=== PATIENT | female | born 1955 | race Caucasian/White ===

== ENCOUNTER 2021-10-04 19:30 | Inpatient (IN) ==
--- NOTE | 2021-10-04 20:36 | Emergency Department Note ---
Impression & Plan Symptoms of cerebrovascular accident, Tobacco dependence due to cigarettes, Hyperlipidemia, Hypertension ED Provider Note CHIEF COMPLAINT: Needs additional testing, possible stroke HISTORY OF PRESENT ILLNESS: This 66-year-old female patient presents to the emergency department requesting additional testing. The patient states she was seen in the emergency department earlier today for left leg numbness and weakness, gait difficulties. Patient had a CT angiogram of the head and neck that were negative for focal occlusion and stenosis. Recommendations were made for her to stay in the hospital for further stroke evaluation and given her high risk status. Patient signed out AGAINST MEDICAL ADVICE however after she spoke with her son and her physician, Dr. Mcguire, she was referred back to the emergency department. Patient states she is now willing to be admitted for further work-up feeling better informed of the plan. REVIEW OF SYSTEMS: A review of systems was performed with positives and pertinent negatives listed in the history of present illness. 10 systems were reviewed and are otherwise negative. ALLERGIES: see below MEDICATIONS: see below PMH: see below SOCIAL HISTORY: see below DDx: Infection, dehydration, metabolic abnormality, hypo/hyperglycemia, elec trolyte disturbance, anemia, hypoxia, cardiac sources, intracerebral event, toxicologic, neurologic, as well as other pathologies. PHYSICAL EXAM: Vital signs reviewed. General: Chronically ill-appearing 66-year-old female, in no significant distress. HEENT: No scleral icterus, PERRLA, neck supple. Atraumatic. Cardiovascular: Slightly tachycardic but regular, no extra sounds Pulmonary: Clear to auscultation bilaterally, normal work of breathing. Abdomen: Soft, nontender, nondistended, positive bowel sounds. Musculoskeletal: Atraumatic, no peripheral edema. Neurologic: Patient awake alert and oriented x 3, speech is clear. Slight weakness of the left lower extremity against gravity, cranial nerves II through XII are grossly intact. Equal strength of the bilateral upper extremities inclu ding office services representative strength. Skin: Warm, dry, no rash EMERGENCY DEPARTMENT COURSE/MDM: This patient was evaluated and appeared to be in no significant distress. IV access was obtained and laboratory work was drawn was placed on the youth career specialist noted to be in a sinus rhythm at 95 bpm. The patient's symptoms were the same if not improved from earlier in the day. Images of the CT angiogram of the head and neck were reviewed and revealed no significant stenosis or occlusion. There is no evidence of acute infarct on CT imaging. Laboratory work was fairly reassuring. Case was discussed with Dr. Manju Judd of the hospitalist service will evaluate the patient for admission and further management. MONITORING: An order for cardiac monitoring was placed and the patient is noted to be in a sinus rhythm at 95 beats per minute. RADIOLOGY: See below EKG: Normal sinus rhythm at 95 bpm. Possible previous septal infarct with Q waves noted, prolonged QTC at 469. No PVC, no PAC. No significant change from previous same-day. DISPOSITION: Admission Past Med/Surg History Medical History Asthma Depression with anxiety Fibromyositis Hepatitis-C LGSIL on Pap smear of cervix 2002, 2003 Migraine Pulmonary emphysema Surgical History H/O section H/O colonoscopy 10/26/2009-[facility]l H/O colposcopy with cervical biopsy wnl H/O LEEP 2003 History of tubal ligation Status post hysteroscopic ablation of endometrium Family History Aunt Diabetes Social History Smoking Status: Current every day smoker Tobacco Type: Cigarettes Hx Alcohol Use: No Preferred Language: Luxembourgish Feels Safe at Home: Yes Allergies Allergies Allergy/AdvReac Type Severity Reaction Status Date / Time meloxicam Allergy Verified 01/11/21 08:06 Home Meds Home Medications Medication Instructions Recorded Confirmed albuterol sulfate [Ventolin HFA] 2 inh INHALATION DIRECTED PRN 05/21/19 10/04/21 montelukast 10 mg tablet 10 mg PO DAILY 05/21/19 10/04/21 (Singulair) omeprazole 20 mg capsule,delayed 20 mg PO DAILY 05/21/19 10/04/21 release temazepam 30 mg capsule 1 mg PO HS PRN 05/21/19 10/04/21 fluticasone 250 mcg-salmeterol 50 1 inh INHALATION BID 10/04/21 10/04/21 mcg/dose blistr powdr for inhalation (Wixela Inhub) lisinopril 10 mg tablet 10 mg PO DAILY 06/14/22 06/14/22 vortioxetine 10 mg tablet 10 mg PO DAILY 10/04/21 10/04/21 (Trintellix) Results & Data (ED) Vital Signs Vital Signs - 24 hr 10/04/21 19:33 10/04/21 20:14 Temperature 36.5 C Temperature Source Temporal Artery Scan Oral Pulse Rate 108 H Pulse Rate [Right Finger] 95 H Pulse Rhythm [Right Finger] Regular Pulse Strength [Right Finger] Normal Respiratory Rate 16 18 Respiratory Effort / Characteristics Non-Labored Spontaneous Non-Labored Respiratory Depth Normal Normal Blood Pressure 162/82 H Blood Pressure [Right Arm] 150/90 H Blood Pressure Mean 108 Blood Pressure Mean [Right Arm] 110 Blood Pressure Position Sitting Pulse Oximetry 98 97 Oxygen Delivery Method Room Air Room Air Sepsis Recent Fever Within 48 Hours No Sepsis New/Unexplained Change in Mental Status N/A Sepsis Action Taken by Nursing No Action Required Home Medications Current Medication List: was personally reviewed by me Laboratory Data Attestation: I reviewed the patient's lab results. (Reviewed from earlier in the day.) Discharge Plan Visit Data Chief Complaint: Testing Request Stated Complaint: NEEDS TO FINISH TESTING, REF BY ED Provider: Dalia Gonzales Discharge Problem: Symptoms of cerebrovascular accident, Tobacco dependence due to cigarettes, Hyperlipidemia, Hypertension Forms Stand Alone Forms: My [facility] Prescriptions Prescriptions: No Action albuterol sulfate 2 inh inhalation DIRECTED PRN (Reason: Shortness Of Breath) RF: 0 temazepam 30 mg capsule 1 mg PO HS PRN (Reason: prn) RF: 0 omeprazole 20 mg capsule,delayed release(DR/EC) 20 mg PO DAILY RF: 0 montelukast [Singulair] 10 mg tablet 10 mg PO DAILY RF: 0 fluticasone propion-salmeterol [Wixela Inhub] 250-50 mcg/dose Blister With Device 1 inh INHALATION BID RF: 0 lisinopril 10 mg Tablet 10 mg PO DAILY RF: 0 Trintellix 10 mg tablet 10 mg PO DAILY RF: 0 Referrals Referrals: Simón Mcguire DO [Primary Care Provider] - Discharge Problem: Hyperlipidemia Qualifiers: Hyperlipidemia type: unspecified Qualified Code(s): E78.5 - Hyperlipidemia, unspecified Hypertension Qualifiers: Hypertension type: primary hypertension Qualified Code(s): I10 - Essential (primary) hypertension
--- NOTE | 2021-10-04 22:41 | History and Physical Report ---
DATE OF ADMISSION: 10/04/2021. CHIEF COMPLAINT: Left leg weakness. HISTORY OF PRESENT ILLNESS: A 66-year-old female with past medical history significant for hypercholesterolemia, COPD, obstructive sleep apnea on CPAP, hypertension, vitamin D deficiency, GERD, bilateral carpal tunnel syndrome, fibromyalgia, osteoporosis, vascular dementia, hearing loss, chronic bilateral thoracic back pain, migraine, ongoing tobacco use, anxiety, depression, hepatitis C virus, cured after antiviral therapy, comes because of left leg weakness. The patient says since last night she had left leg weakness and she went to PCP's office today and was advised to come to the ER. She came to the ER and CT of the head and CTA of the head and neck were unremarkable and patient was advised to get admitted in the hospital for MRI scan, but she declined and signed out AMA and went home. Again after talking to her family doctor, she came back for further evaluation. Currently, resting comfortably, hemodynamically stable. Except for left leg weakness she denies any other complaints. She has cough from her COPD and sinuses. Denies any fever or chills. No nausea, no vomiting, no chest pain, no shortness of breath, no abdominal pain, normal bowel and bladder movements. No swelling in the legs. No headache, no dizziness, no blurred visions, no earache, no runny nose, no sore throat. Appetite is okay. Hemodynamically stable. ALLERGIES: TO MELOXICAM. PAST MEDICAL HISTORY: As mentioned above. PAST SURGICAL HISTORY: Anesthesia for ankle arthroscopy, , colonoscopy, ligation of oviducts, removal of fibroid uterus tumor, tonsillectomy. MEDICATIONS: The patient is on acyclovir 400 mg p.o. b.i.d., albuterol 2 puffs inhalation q. 4 hours p.r.n., azelastine 2 sprays intranasally b.i.d., calcium 500 mg p.o. daily, vitamin D 25 mcg p.o. daily, fluticasone/salmeterol 1 inhalation b.i.d., lisinopril 10 mg p.o. daily, Montelukast 10 mg p.o. daily, multivitamin one tablet p.o. daily, omeprazole 20 mg p.o. daily, potassium 25 mg p.o. daily, sumatriptan p.r.n., temazepam 30 mg p.o. at bedtime p.r.n., [id number] mg p.o. daily. FAMILY HISTORY: Significant for aunt has diabetes. Father has AR. Son has depression. SOCIAL HISTORY: Smokes 1 pack a day for many years. No alcohol use. No drug use. REVIEW OF SYSTEMS: As per HPI. Rest of the review of systems is negative. PHYSICAL EXAMINATION: GENERAL: The patient is of moderate build, not in acute distress. VITAL SIGNS: Temperature 36.5, pulse 94, respiratory rate 18, blood pressure 150/90, oxygen 97% on room air. HEENT: Pupils equal, round and reactive to light. Oral mucosa moist. LUNGS: No JVD, no neck masses. CARDIOVASCULAR: S1 and S2 heard. Regular rate and rhythm. No murmur, no gallop. RESPIRATORY SYSTEM: Normal AP diameter. No accessory muscle use. No wheezing, no crackles. ABDOMEN: Soft. Bowel sounds are present, nontender, no distention. CENTRAL NERVOUS SYSTEM: Alert, awake, and oriented. Extraocular muscles intact. Speech is clear. No facial droop seen. Insight is good. Power 5/5 in all extremities, except for left lower extremity. Left lower extremity power is about 2-3/5 severity. No pronator drift. Coordination of movements normal. Sensation seems intact. Position sense intact. Left lower extremity difficult to lift and hold. EXTREMITIES: No edema, no erythema. LABORATORY DATA: Done today morning, WBC 8.1, hemoglobin 14.8, hemoglobin 14.8, platelets 258. PT 10.7, INR 1, APTT 1.1 Sodium 138, potassium 3.8, chloride 105, CO2 24, BUN 9, creatinine 0.8, serum glucose 115, calcium 9.9, magnesium 1.9, total bilirubin 0.5, AST 22, ALT 15, alkaline phosphatase 53. Troponin I high sensitivity 66.6. . Rapid COVID test negative. IMAGING STUDIES: Done in the morning. CT of the head, no acute intracranial findings. CTA of the head and neck with contrast no occlusion,no hemodynamically significant stenosis found. Chest x-ray, no acute disease in the chest. EKG: Normal sinus rhythm at a rate of 96. No acute ST changes seen. ASSESSMENT AND PLAN: This is a 66-year-old female who presents with left leg weakness. 1. Left leg weakness. Rule out stroke. She was in the morning in the hospital. CTA of the head and neck and CT of the head were unremarkable. She signed out AMA. Comes again after persuasion from her PCP comes again for further workup, we will follow the stroke protocol. We will order MRI scan, echocardiogram PT/OT, speech evaluation, neuro evaluation in the a.m. Will start on aspirin and statin. Follow lipid profile. Monitor in the med tele. 2. Hypertension. We will hold lisinopril to allow for permissive hypertension.Monitor BP. 3. History of chronic obstructive pulmonary disease. Continue home inhalers. 4. History of sleep apnea. Continue CPAP at bedtime. 5. Gastroesophageal reflux disease, omeprazole. 6. Tobacco abuse.Nicotine patch. Needs counseling. 7. Deep venous thrombosis prophylaxis: SCDs for now. DISPOSITION: Closely monitor in the med tele. PT/OT prior to discharge. Social Service to help with discharge planning. Job ID: [id number] MTDD
[2021-10-05] MEDS ORDERED: NICOTINE 21 MG/24 HR TDSY TD SCH ×2 (01:20→08:00)
[2021-10-05] MEDS ORDERED: FLUTICASONE/VILANTEROL 200/25MCG 14 PUFFS/INHALER INH SCH (01:20)
[2021-10-05] MEDS ORDERED: SODIUM CHLORIDE 0.45 % 1,000 ML IV SCH (01:20)
[2021-10-05] MEDS ORDERED: POLYETHYLENE (MIRALAX) 17 GM PACK PO PRN (01:20)
[2021-10-05] MEDS ORDERED: ONDANSETRON INJ 2 MG/ML 2 ML VIAL IV PRN (01:20)
[2021-10-05] MEDS ORDERED: FLUTICASONE/SALMETEROL 250/50 (ADVAIR) 14 PUFF/1 INHALER INH SCH (01:20)
[2021-10-05] MEDS ORDERED: NITROGLYCERIN SL 0.4 MG/TAB TAB SL PRN (01:20)
[2021-10-05] MEDS ORDERED: ACETAMINOPHEN 325 MG TAB PO PRN (01:20)
[2021-10-05] MEDS ORDERED: TEMAZEPAM 15 MG CAPSULE PO PRN ×2 (01:20→02:31)
[2021-10-05] MEDS ORDERED: PHARMACIST DISCHARGE MED REC CONSULT PRN (01:20)
[2021-10-05] MEDS ORDERED: ALBUTEROL HFA 8 GM INHALER INH PRN (01:20)
[2021-10-05] MEDS ORDERED: SUMAtriptan succinate 50 MG TAB PO SCH (01:20)
[2021-10-05] MEDS ORDERED: GADOBUTROL 65ML VIAL IV ONE (02:52)
[2021-10-05] MEDS ORDERED: Nursing to Pharmacy Communication SCH (03:30)
[2021-10-05 07:21] LABS: Hematocrit (blood only) 37.6 % (37-47); Hemoglobin 13.2 g/dL (12.0-16.0); Mean Corpuscular Hemoglobin 32.8 pg (25-34); Mean Corpuscular Volume 93.3 fL (80-100); Red Blood Count 4.03 M/uL (4.2-5.4); White Blood Count 8.72 K/uL (4.8-10.8)
[2021-10-05 07:22] LABS: Basophils # (auto) 0.02 K/uL (0-0.2); Basophils % (auto) 0.2 %; Eosinophils # (auto) 0.21 K/uL (0-0.5); Eosinophils % (auto) 2.4 %; Immature Granulocytes # (auto) 0.02 K/uL (0.00-0.02); Immature Granulocytes % (auto) 0.2 %; Lymphocytes # (auto) 2.24 K/uL (1.2-3.4); Lymphocytes % (auto) 25.7 %; Mean Corpuscular Hgb Conc 35.1 g/dL (32-36); Mean Platelet Volume 9.4 fL (7.4-10.4); Monocytes # (auto) 0.76 K/uL (0.11-0.59); Monocytes % (auto) 8.7 %; Neutrophils # (auto) 5.47 K/uL (1.4-6.5); Neutrophils % (auto) 62.8 %; Platelet Count 231 K/uL (130-400); RDW Coefficient of Variation 12.8 % (11.5-14.5); RDW Standard Deviation 43.7 fL (36.4-46.3)
[2021-10-05 07:30] LABS: Estimated Average Glucose 117 mg/dl; Hemoglobin A1C 5.7 % (4.5-5.6)
[2021-10-05 07:45] LABS: BUN Creatinine Ratio 9.5 (10-20); Calcium 8.8 mg/dl (8.5-10.1); Chol HDL Ratio 3.2 (0-5); Est GFR (African American) 98.5 ml/min
--- NOTE | 2021-10-05 07:49 | Magnetic Resonance Report ---
MR brain wo/w con CLINICAL HISTORY: left leg weakness. CVA? TECHNIQUE: Multiplanar and multisequence MR images of the brain were obtained prior to and following administration of gadolinium contrast. Comparison: None available at the time of this dictation. FINDINGS: No abnormal restricted diffusion is identified. Foci of T2 and FLAIR hyperintensity are noted in the paraventricular areas consistent with chronic small vessel ischemic disease. The ventricular system i s normal in appearance. No mass or abnormal enhancement is seen. There is no mass effect or midline s hift. There is no evidence of acute intraparenchymal hemorrhage. No extra axial fluid collections are seen. The corpus callosum, pituitary gland, and cerebellar tonsils appear grossly unremarkable. Flow voids of the major intracranial arterial vessels are identified. The imaged portions of the para nasal sinuses, mastoid air cells, and orbits are unremarkable. IMPRESSION: White matter changes are seen which are favored to be age related. No evidence of acute infarct. ACT 112: Negative or not required by law. Electronically signed by: Weston Dave M.D. 10/05/2021 7:47 AM
[2021-10-05] MEDS ORDERED: MONTELUKAST SODIUM 10 MG TABLET PO SCH (09:00)
[2021-10-05] MEDS ORDERED: NON-FORMULARY MEDICATION (Potassium 95 mg Tablet) PO SCH (09:00)
[2021-10-05] MEDS ORDERED: MULTIVITAMIN TAB PO SCH (09:00)
[2021-10-05] MEDS ORDERED: ASPIRIN 81 MG ECTAB PO SCH (09:00)
[2021-10-05] MEDS ORDERED: ATORVASTATIN 40 MG TAB PO SCH (09:00)
[2021-10-05] MEDS ORDERED: PANTOprazole 40 MG TAB PO SCH (09:00)
[2021-10-05] MEDS ORDERED: AZELASTINE HCL 0.1% NASAL 200 SPRAYS/27,400 MCG BTL SCH (09:00)
[2021-10-05] MEDS ORDERED: CHOLECALCIFEROL 1,000 UNITS 25 MCG TAB PO SCH (09:00)
[2021-10-05] MEDS ORDERED: ACYCLOVIR 400 MG TAB PO SCH (09:00)
[2021-10-05] MEDS ORDERED: CALCIUM CARBONATE 500 MG CHEWABLE TAB PO SCH (09:00)
[2021-10-05] MEDS ORDERED: LOPERAMIDE HCL 2 MG CAP PO PRN (10:00)
--- NOTE | 2021-10-05 11:51 | Electrocardiogram Report ---
Test Reason : Blood Pressure : / mmHG Vent. Rate : 096 BPM Atrial Rate : 096 BPM P-R Int : 156 ms QRS Dur : 096 ms QT Int : 372 ms P-R-T Axes : 077 040 058 degrees QTc Int : 469 ms Normal sinus rhythm Normal ECG When compared with ECG of 04-OCT-2021 11:03, Nonspecific T wave abnormality has replaced inverted T waves in Anterior leads Confirmed by Ritchie Rutledge ([id number]) on 10/05/2021 11:51:13 AM Referred By: Simón Mcguire Confirmed By:Babatunde Rutledge
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
--- NOTE | 2021-10-05 15:38 | Hospitalist Progress Note ---
Date of Service October 05, 2021 Assessment & Plan (1) Brain TIA: Plan: Patient is a 66 year-old female who presents with left leg weakness. TIA --Brain MRI:White matter changes are seen which are favored to be age related. No evidence of acute infarct. --Head/Neck CTA:No occlusion, hemodynamically significant stenosis, aneurysm, dissection, or arteriovenous malformation in the major intracranial arteries. No occlusion, hemodynamically significant stenosis, or dissection in the major cervical arteries. --ECHO: The left ventricle is normal in size. Mild concentric LVH. Left ventricle wall motion is normal. EF 60 to 65%. Mild to moderate tricuspid regurgitation. Interatrial septum is intact with no evidence of atrial septal defect. HbA1c 5.7 LDL 101 -- Advised to quit smoking Appreciate neurology input Plan to be started on aspirin 81 mg, Plavix 75 mg for 21 days, and then aspirin alone for rest of life Also plan to start on Lipitor 40 mg daily PT/OT/Speech eval completed Needs follow-up with neurology upon discharge Hypertension Resume home meds COPD No signs of exacerbation Continue home inhalers MAU Continue CPAP at bedtime. GERD on PPI Tobacco abuse Counseled to quit smoking Currently patient not interested to quit smoking but prefers to decrease it DVT Px SCDs Code Status Full Code DISPOSITION: Home Admission and Anticipated Discharge Date Admission Date: October 04, 2021 Subjective Patient is seen and examined at bedside Left leg weakness resolved Discussed with neurology today Denies any chest pain, shortness breath, dizziness, nausea, abdominal pain No other complaints Review of Systems Review of Systems: All systems reviewed & are unremarkable except as noted in Subjective Physical Exam Physical Exam: Physical Exam: Vitals signs as noted above General Appearance:Thin, no apparent distress Head: normocephalic, Atraumatic Eyes: normal inspection, EOMI Neck: supple, Trachea midline Respiratory/Chest: Normal breath sounds, CTA, No accessory muscle use Cardiovascular: S1, S2, No murmur Abdomen/GI:Soft, Non tender, Bowel sounds present Extremities/Musculoskeletal:normal inspection, no edema Neurologic/Psych:AAOX3, grossly no focal neurological deficits Skin: normal color, warm Results & Data Results & Data ([facility]) Vital Signs (Past 12 Hours) Vital Signs Temp Pulse Pulse Resp BP Pulse Ox 10/05/21 14:51 93 H 10/05/21 11:43 36.9 C 88 18 120/75 96 10/05/21 08:37 36.9 C 96 H 18 124/74 94 10/05/21 07:16 88 10/05/21 04:36 36.7 C 90 18 109/70 90 Laboratory Results Short CBC 10/05/21 Range/Units 06:54 WBC 8.72 (4.8-10.8) K/uL Hgb 13.2 (12.0-16.0) g/dL Hct 37.6 (37-47) % Plt Count 231 (130-400) K/uL BMP 10/05/21 06:54 Sodium 138 Potassium 4.0 Chloride 108 H Carbon Dioxide 26 BUN 7 Creatinine 0.74 Glucose 83 Calcium 8.8
[2021-10-05] MEDS ORDERED: CLOPIDOGREL BISULFATE 75 MG TAB PO SCH (16:30)
--- NOTE | 2021-10-05 16:39 | Discharge Summary ---
Date of Service October 05, 2021 Admission HPI Per Admitting Provider CHIEF COMPLAINT: Left leg weakness. 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 The patient says since last night she had left leg weakness and she went to PCP's office today and was advised to come to the ER. She came to the ER and CT of the head and CTA of the head and neck were unremarkable and patient was advised to get admitted in the hospital for MRI scan, but she declined and signed out AMA and went home. Again after talking to her family doctor, she came back for further evaluation. Currently, resting comfortably, hemodynamically stable. Except for left leg weakness she denies any other complaints. She has cough from her COPD and sinuses. Denies any fever or chills. No nausea, no vomiting, no chest pain, no shortness of breath, no abdominal pain, normal bowel and bladder movements. No swelling in the legs. No headache, no dizziness, no blurred visions, no earache, no runny nose, no sore throat. Appetite is okay. Hemodynamically stable. Admission Exam Per Admitting Provider PHYSICAL EXAMINATION: GENERAL: The patient is of moderate build, not in acute distress. VITAL SIGNS: Temperature 36.5, pulse 94, respiratory rate 18, blood pressure 150/90, oxygen 97% on room air. HEENT: Pupils equal, round and reactive to light. Oral mucosa moist. LUNGS: No JVD, no neck masses. CARDIOVASCULAR: S1 and S2 heard. Regular rate and rhythm. No murmur, no gallop. RESPIRATORY SYSTEM: Normal AP diameter. No accessory muscle use. No wheezing, no crackles. ABDOMEN: Soft. Bowel sounds are present, nontender, no distention. CENTRAL NERVOUS SYSTEM: Alert, awake, and oriented. Extraocular muscles intact. Speech is clear. No facial droop seen. Insight is good. Power 5/5 in all extremities, except for left lower extremity. Left lower extremity power is about 2-3/5 severity. No pronator drift. Coordination of movements normal. Sensation seems intact. Position sense intact. Left lower extremity difficult to lift and hold. EXTREMITIES: No edema, no erythema. Principal Diagnosis Transient ischemic attack Discharge Data Allergies Allergy/AdvReac Type Severity Reaction Status Date / Time meloxicam Allergy Unknown Unverified 10/04/21 21:10 shellfish derived Allergy Verified 10/05/21 15:23 alendronate sodium AdvReac Diarrhea Verified 10/04/21 21:37 apple AdvReac Verified 10/05/21 15:23 blueberry AdvReac Verified 10/05/21 15:23 strawberry AdvReac Verified 10/05/21 15:23 Consultations 10/04/21 20:04 ED Decision to Admit Stat 10/05/21 08:00 Consult Neurology Routine Ordered Studies 10/05/21 01:20 MR brain wo/w con Urgent Hospital Course (1) Brain TIA: Patient is a 66 year-old female who presents with left leg weakness. TIA --Brain MRI:White matter changes are seen which are favored to be age related. No evidence of acute infarct. --Head/Neck CTA:No occlusion, hemodynamically significant stenosis, aneurysm, dissection, or arteriovenous malformation in the major intracranial arteries. No occlusion, hemodynamically significant stenosis, or dissection in the major cervical arteries. --ECHO: The left ventricle is normal in size. Mild concentric LVH. Left ventricle wall motion is normal. EF 60 to 65%. Mild to moderate tricuspid regurgitation. Interatrial septum is intact with no evidence of atrial septal defect. HbA1c 5.7 LDL 101 -- Advised to quit smoking Appreciate neurology input Plan to be started on aspirin 81 mg, Plavix 75 mg for 21 days, and then aspirin alone for rest of life Also plan to start on Lipitor 40 mg daily PT/OT/Speech eval completed Needs follow-up with neurology upon discharge Hypertension Resume home meds COPD No signs of exacerbation Continue home inhalers MAU Continue CPAP at bedtime. GERD on PPI Tobacco abuse Counseled to quit smoking Currently patient not interested to quit smoking but prefers to decrease it DVT Px SCDs Code Status Full Code DISPOSITION: Home Total Time Total Time Spent Total Time Spent (In Minutes): 45 minutes Discharge Plan Discharge Items Patient Disposition: Home - Self-Care Reason For Visit: L LEG WEAKNESS Discharge Diagnosis: Transient ischemic attack Activity: Per Instructions section Exercise/Sports: Gradually increase as tolerated Non-emergency contact: Primary Care Provider and Neurologist Call non-emergency contact if: you have any medication questions, your symptoms worsen, your pain is concerning for you and you have a fever Follow-up/Referrals: Simón Mcguire, [Primary Care Provider] - Diet: Heart Healthy Diet Texture: Easy to Chew Addtl Attending Provider Instructions: Follow-up with your primary care physician in 1 week. Please call for appointment Follow-up with your neurologist Dr. Radha Thornton/Radha Leary PA-C in 4-6 weeks --- Start taking aspirin 81 mg and Plavix 75 mg daily for 21 days and then take aspirin 81 mg daily alone for the rest of life. --- Start taking Lipitor 40 mg daily --- Your Omeprazole is changed to pantoprazole due to potential interaction between omeprazole and Plavix. --- Consider to quit smoking as recommended. Seek immediate medical attention if your symptoms reoccur or worsen Please take all medications as instructed on discharge list below. Please call if you have any questions or problems. You can reach a [facility] hospitalist on duty at [facility] 24 hours a day by calling [phone] Risk Factors for Stroke: You can reduce your chances of stroke by working with your medical provider to adopt a healthy lifestyle. Some specific ways to lower your chance of stroke are: * If you are a smoker, now is the time to stop smoking cigarettes * If you are diabetic, improve the control of your blood sugars * Avoid excessive amounts of alcohol * Control high blood pressure * Lose weight if you are overweight * Be sure to lead an active lifestyle * Eat a healthy diet low in salt, cholesterol and fat You should know about other risk factors for stroke that you are unable to control. These include: * Age 55 years or older * Male gender * Certain racial groups: , or / * Family History of Stroke, Mini stroke or Heart Attack * Sickle Cell Disease Follow Up: It is important for you to keep your follow up appointments with your medical provider. Who to Call and When: Medical Emergencies: Call 911 immediately if you experience any of the following warning signs and symptoms of Stroke: * Sudden numbness or weakness of the face, arm or leg, especially on one side of the body * Sudden confusion, trouble speaking or understanding * Sudden trouble seeing in one or both eyes * Sudden trouble walking, dizziness, loss of balance or coordination * Sudden severe headache with no cause Do not delay calling 911 if you experience any warning signs or symptoms of a stroke. Delay in seeking medical attention may affect what treatments can be given to you. . Pending Studies at Discharge: No Stand-Alone Forms: My [facility], Smoking Cessation Medications and DC Order Prescriptions: New clopidogrel 75 mg Tablet 75 mg PO QAM Qty: 20 RF: 0 atorvastatin 40 mg Tablet 40 mg PO QAM Qty: 30 RF: 1 aspirin 81 mg Tablet,Delayed Release (Dr/Ec) 81 mg PO QAM Qty: 30 RF: 1 pantoprazole 40 mg Tablet,Delayed Release (Dr/Ec) 40 mg PO DAILY Qty: 30 RF: 1 Continued temazepam 30 mg capsule 30 mg PO HS PRN (Reason: prn) RF: 0 montelukast [Singulair] 10 mg tablet 10 mg PO DAILY RF: 0 fluticasone propion-salmeterol [Wixela Inhub] 250-50 mcg/dose Blister With Device 1 inh INHALATION BID RF: 0 lisinopril 10 mg Tablet 10 mg PO DAILY RF: 0 Trintellix 10 mg tablet 10 mg PO DAILY RF: 0 multivitamin Tablet 1 tab PO DAILY RF: 0 sumatriptan succinate [Imitrex] 50 mg Tablet 0 mg PO .COMPLEX RF: 0 acyclovir 400 mg Tablet 400 mg PO AMHS RF: 0 potassium 95 mg Tablet 95 mg PO DAILY RF: 0 calcium carbonate [Calcium 500] 500 mg calcium (1,250 mg) Tablet 500 mg PO DAILY RF: 0 azelastine 137 mcg (0.1 %) Aerosol,Gage 2 spray INTRANASAL BID RF: 0 albuterol sulfate 90 mcg/actuation Hfa Aerosol Inhaler 2 puff INHALATION Q4 PRN (Reason: Shortness Of Breath Or Wheezing) RF: 0 Nicotinamide 500-750-1.5-25 lwr-pf-ca-mg Tablet,Ext Release Multiphase 1 tab PO HS RF: 0 cholecalciferol (vitamin D3) [Vitamin D3] 25 mcg (1,000 unit) Tablet 25 mcg PO DAILY RF: 0 vitamin B complex Tablet 1 tab PO DAILY RF: 0 Discontinued omeprazole 20 mg capsule,delayed release(DR/EC) 20 mg PO DAILY RF: 0 Discharge Orders: Discharge Order (Routine); Ordered 10/05/21 Ordered By: Bjorn Minor Admission Data Admit Date/Time: 10/04/21 21:27 Attending Provider: Bjorn Minor Admit Provider: David Burns Primary Care Provider: Simón Mcguire Other Providers: David Burns ; Radha Thornton
[2021-10-05] MEDS ORDERED: STROKE PATIENT DISCHARGE PRN (16:53)
--- NOTE | 2021-10-05 17:10 | Pharmacy Report ---
Pharmacist Stroke Counseling - Date of Service October 05, 2021 - Scope: Pharmacy has been consulted to provide medication discharge counseling for this patient admitted with transient ischemic attack as per the Pharmacist Discharge Counseling for Stroke Patients Protocol. - Medications on Discharge: Home Medications Medication Instructions Recorded Confirmed montelukast 10 mg tablet 10 mg PO DAILY 05/21/19 10/04/21 (Singulair) temazepam 30 mg capsule 30 mg PO HS PRN 05/21/19 10/05/21 [id number] ox-Zn ER 500 1 tab PO HS 10/04/21 10/04/21 mcg-750 mg-1.5 mg-25 mg tablet,ER acyclovir 400 mg tablet 400 mg PO AMHS 10/04/21 10/04/21 albuterol sulfate 90 mcg/actuation 2 puff INHALATION Q4 PRN 10/04/21 10/04/21 aerosol inhaler azelastine 137 mcg (0.1 %) nasal 2 spray INTRANASAL BID 10/04/21 10/04/21 spray aerosol calcium carbonate 500 mg calcium 500 mg PO DAILY 10/04/21 10/04/21 (1,250 mg) tablet cholecalciferol (vitamin D3) 25 25 mcg PO DAILY 10/04/21 10/04/21 mcg (1,000 unit) tablet (Vitamin D3) fluticasone 250 mcg-salmeterol 50 1 inh INHALATION BID 10/04/21 10/04/21 mcg/dose blistr powdr for inhalation (Wixela Inhub) lisinopril 10 mg tablet 10 mg PO DAILY 10/04/21 10/04/21 multivitamin 1 tab PO DAILY 10/04/21 10/04/21 potassium 95 mg tablet 95 mg PO DAILY 10/04/21 10/04/21 sumatriptan succinate 50 mg tablet 0 mg PO .COMPLEX 10/04/21 10/04/21 (Imitrex) vitamin B complex 1 tab PO DAILY 10/04/21 10/04/21 vortioxetine 10 mg tablet 10 mg PO DAILY 10/04/21 10/04/21 (Trintellix) New Rx's Medication Instructions Recorded aspirin 81 mg tablet,delayed 81 mg PO QAM #30 tab 10/05/21 release atorvastatin 40 mg tablet 40 mg PO QAM #30 tab 10/05/21 clopidogrel 75 mg tablet 75 mg PO QAM #20 tab 10/05/21 pantoprazole 40 mg tablet,delayed 40 mg PO DAILY #30 tab 10/05/21 release - Action: The above medications, specifically ones for stroke treatment/prophylaxis, have been reviewed in detail with the patientprior to discharge. This includes indication, common adverse reactions, drug interactions, and medication administration. - Outcome: The patient and/or patient sales representative public utilities(s) have demonstrated understanding of the medications. Additional comments: - Discussed aspirin/clopidogrel x3 weeks then stopping clopidogrel - Discussed addition of atorvastatin - Discussed switching omeprazole to pantoprazole due to DDI w clopidogrel. Noted that the patient can follow-up as an outpatient in 3 weeks (after clopidogrel stopped) to determine which PPI she would like to continue moving forward Thank you for allowing pharmacy to be involved in the care of this patient. Please call [phone] with any additional questions
[2021-10-05] MEDS ORDERED: [UNRECOGNIZED DRUG - OTHER] PO SCH (21:00)
== END 2021-10-05 17:56 | disposition home or self-care (01) | DRG 69 ==
LOC: ED 19:30 → 2W 21:27